=== PATIENT | female | born 1985 | race Caucasian/White ===

== ENCOUNTER 2025-10-01 07:50 | Day surgery (SDC) | payer OTHER, SELFPAY ==
--- NOTE | 2025-09-25 13:39 | PM.GYNHP.1 ---
History of Present Illness History of Present Illness Narrative: Regi Brown is a 39 year old female Date of procedure:?? 10-01-25 Preoperative diagnosis:? JOSESITO Planned Procedure:?? mid urethral sling, cystoscopy Postop Meds (to be ordered Tylenol 1000 mg, ?3 times a day? Motrin 600 mg (under age 65 yr) ,? 3 times a day Oycodone 5 mg,? take 1 pill every 4-6 hr as needed, # 5? Colace,? 1 pill BID, for constipation CC: Stress incontinence HPI: 39-year-old female who presents for evaluation of above complaint.?? She reports onset of symptoms 4-5 years ago.?? She considers this a? Moderate? problem. She notes stress incontinence that started with the of her 1st child back in 2019. She has had a 2nd delivery in January of this past year in the problem has worsened. She is very physically active and runs frequently and also works as a high school social studies teacher. So she generates a lot of triggers for stress incontinence creating the bothersome leakage. She reports that she will also sometimes leak with sneezing coughing and walking, but we will be having significant leakage with exercising. She leaks at least once or twice a day. Does not use pads presently. He is interested in surgery to treat her problem. She has done [facility], physical therapy, she has used a ring pessary with a knob, and she is presently inserting a tampon when she goes running to try to minimize the leakage by giving her urethral support from the tampon. She has completed childbearing in her spouse has a vasectomy. She desires surgery and is interested in having a sling. She does not have urge incontinence, no overactive bladder, empties her bladder well, no bladder infections, no hematuria. Very healthy young female prior hyst -0 -x2 c-sec -0 Pelvic Floor Review of Systems: (HPI) Stress Urinary Incontinence symptoms (JOSESITO): At least 1 or 2 per day, much worse with exercise and Triggers include: Sneeze, cough, walk, exercise ? Urge Incontinence symptoms (Urge UI): 0 Triggers include: 0 ? Pads: She wears 0, just changes clothes as needed Overactive Bladder symptoms (OAB):? ? Frequency:?? Every 3 hours Nocturia:?? X1 Urgency:?? 0 Prior incontinence treatment includes:? Medical:? No Surgical:? No? Josegels:?? Yes Physical therapy:?Yes Pessary:?Yes Diet / Fluids: Fluid restriction:? No Excessive fluids:?No Pain symptoms:? Painful bladder:???No Dysuria:??? No Dyspareunia:? Yes, she rates that she has had dyspareunia for several years., positional, deep inside. Prior pelvic exam demonstrated uterus was tipped and this might be the trigger for it Dysmenorrhea:? No Urinary Risk Factors UTI?s, recurrent:? No Hematuria:? No Kidney Stones:?No? Tobacco use:? No Pelvic Organ Prolapse (POP) symptoms:?? Bulge:?No Pressure and /or? Heaviness:?No Splint for defecation or voiding:???No Voiding dysfunction: Abnormal stream:? No Strain to void:? No Incomplete emptying:?No Voiding difficulty:? No Retention:??? No Bowel Function: Constipation:?0? Strain to defecate:?0 Fiber:?0 Laxatives:?0 Fecal Incontinence:? Liquid stool:? No Solid stool:?No?? Sexual function Sexually active: Yes Incontinence with sex:? No ? General Review of Systems: Constitutional, CV, Endo, Musc-skel, Eyes, Cancer, Skin, Breast, GI, Heme/Lymph, Psych, Urinary, Neuro, Layout Operator, Resp, Sexual:??? Pertinent positives listed above in HPI All others reviewed and negative. . . PFSH Allergies No Known Drug Allergies Allergy (Verified 08/14/25 08:50) Medications No Known Home Medications 08/14/25 [History Confirmed 08/14/25] Medical History (Updated 08/14/25 @ 09:37 by Papo Byrd MD) Stress incontinence, female Exam Vitals 08/14/2508:52 Height 5 ft 7 in Weight 155 lb BMI 24.3 BP 108/68 Blood Pressure Location Rt radial Position Sitting Pulse 62 Pulse Source Monitor Pulse Oximetry (%) 99 Oxygen Delivery Method room air Narrative: General: healthy, alert, coherent, no acute distress, cooperative, nontoxic Pulmonary: normal breathing, no distress Abdomen: soft, no mass, non-distended, no hernia, non-tender Skin: Scars on Abd: 0 Vulva: Normal labia majora, labia minora, introitus, and clitoris, non-tender Urethra meatus: normal, no discharge Perineum: Normal, non-tender Urethra: No mass, non-tender Bladder: no mass, non-tender Vagina: No lesions, no discharge, 0 atrophy, non-tender Prolapse 0, there is laxity of the anterior and posterior vaginal lyman, mild, no prolapse Levators: Non-tender, 4 / 5 kegel squeeze Cervix: Normal, current with Pap smears, normal, No lesions, no discharge, non-tender Uterus: Retroflexed, tipped posteriorly, and the fundus is palpable vaginally and this is the source of her pain with sex normal size, non-tender Bimanual: no mass, no adnexal mass, non-tender Anus: No lesion, non-tender, no hemorrhoid Empty Cough Stress test: Positive, confirming diagnosis of stress incontinence PVR: Not done today, was normal at prior visit with Dr. Lynn Urethral angle hypermobile: Yes, with significant rotational descent Assessment & Plan (1) Stress incontinence, female: Assessment and Plan ? Patient counseled regarding above conditions.? Educational materials given to patient. 1. Stress Urinary Incontinence with urethral hypermobility:? Diagnosis confirmed today with positive cough stress test This diagnosis was discussed with the patient. The etiology was explained. Treatment options were discussed including expectant management, pelvic floor exercises, pessary trial, and surgical intervention (mid-urethral sling, Borja urethropexy, P-V sling, Ira urethral plication, urethral bulking injection).? Risks and benefits of surgery were briefly outlined. We discussed that she is a candidate for a Midurethral Sling as treatment of her stress incontinence. Success rate of being dry from stress incontinence is about 80-85%; another 10-15% of patients are markedly improved but not cured;? 1-2% will fail, and 1-2% will need the sling cut because it is too tight.? The risk of temporary urinary retention requeiring temporary catheterization is about 15-20%; risk of urinary retention requiring sling release procedure is about 1-2%, as noted above.? We discussed the small 1-3% of mesh erosion as well as the small risk of de omayra urgency.? This procedure is not designed to treat Urge Incontinence symptoms; however, 30-50% of patients with overactive bladder/ urgency urinary incontinence will have improvement in these symptoms, in 30% these symptoms will stay the same, and in 20-30% these symptoms will worsen. She would like to proceed with surgery with a mid urethral sling. We will schedule for her see below for counseling CC = here for preop Surgical Counselling Note Patient seen for surgical counselling.? She desires surgical repair. Please see? H & P for exam and discussion. Date of procedure:?? 10-01-25 Preoperative diagnosis:? JOSESITO Planned Procedure:?? mid urethral sling, cystoscopy Postop Meds Tylenol 1000 mg, ?3 times a day? Motrin 600 mg (under age 65 yr) ,? 3 times a day Oycodone 5 mg,? take 1 pill every 4-6 hr as needed, # 15? Colace,? 1 pill BID, for constipation Patient counseled extensively about the Risks, Benefits, and Alternatives to surgery.? She was offered the opportunity to ask any questions, and all questions were answered. ? Surgical Risks include: Bleeding, Hemorrhage, Transfusion, Infection (especially wound or bladder), Injury to adjacent organs (especially bladder, ureter, bowel, blood vessels, nerves), Postop or Chronic Pain, need for Reoperation, and Life-threatening event (especially M.I., CVA, PE, DVT). Procedure Risks include: Failure to Cure condition, Recurrence of condition months or years later, Urinary incontinence, Voiding dysfunction or Urinary Retention with prolonged catheter use, Poor wound healing, Erosions of any mesh or graft used, Dyspareunia, Vaginal scarring or narrowing, Need for additional surgery (immediate or delayed).? The expected cure and improvement and failure rates were discussed. Patient counseled to avoid the following for 6 weeks after surgery: (1) Impact sports (like running or jumping), walking and stairs OK (2) Lifting over 20# (3) Sexual intercourse No limits after 6 weeks. ? Good exercise tolerance, > 4 Mets. Her current medications were reviewed, and instructions given over which to use and which to discontinue before surgery.? Post-operative care instructions reviewed.? We discussed post-operative pain: Pain should be in the mild-moderate range, but can be moderate-severe for the first few days.?? Prescriptions will typically be given for (1) acetaminophen (Tylenol) and (2) non-steroidal anti-inflammatory drug (NSAID, like Motrin or Naprosyn), use both together, around the clock. Prescription will also be given for a (3) narcotic pain medication. Use the narcotic as needed, as a booster to the Tylenol and NSAID. You might need 0-4 narcotic pills a day typically. The narcotic will only be needed for a few days.?? Gradually use less of the narcotic, but continue the Tylenol and NSAID.? After a few days, the narcotic should no longer be needed, and only the Tylenol and NSAID will be needed.? Warm packs or cold packs can also be used for pain.??Do not drive for as long as you are using the narcotic pain medication? - this should only be a few days.?? Constipation is associated with use of narcotic pain medications, and can be improved with use of a stool softener, or fiber, or a mild laxative.? If you are sent home from the hospital with a Ashley Catheter in place:? please call the office on the day after surgery We will usually remove the catheter 2-4 days after surgery: a. You will perform an at home Ashley catheter removal -or- b. You will come in to the office for a voiding trial, (For some unusual surgeries, we might leave the catheter in for up to 2 weeks, and then remove it.) Instructions for at home Ashley catheter removal..... For at-home Ashley catheter removal, this can be done on postop day 2 or 3 or 4, depending on various factors. 1. At 6 or 7 a.m., have the patient cut the Ashley catheter with scissors, while standing in a shower or bath tub. a. Cut the catheter right in the middle of the tubing, about 6 inches from the body. b. The sterile water that is inside the Ashley balloon will leak all over the floor of the shower or bath tub. This is expected. c. The catheter will either fall out of the urethra, or just gently pull on it and it will come out. 2. Now, the bladder will gradually fill up over the next few hours. 3. Go ahead and empty the bladder when you feel an urge to void. Please note how strong the urine stream is. a. If the urine stream is normal or close to normal, then everything is good to go. b. If the urine stream is slow or you can not void, then return to the clinic in the afternoon. We will place another Ashley catheter. We will repeat the voiding trial in 3-4 days. All of her questions were answered Papo Byrd MD UroGynecology & Pelvic Reconstructive Surgery [facility] Medical History (Updated 09/13/25 @ 12:23 by Petrona Arias RN) Mixed anxiety depressive disorder Thickened atrial septum Stress incontinence, female Social History Smoking Status: Never smoker Meds Home Medications and Allergies Home Medications ?Medication ?Instructions ?Recorded ?Confirmed ?Type oxycodone 5 mg tablet 5 mg PO Q4H PRN pain #5 tabs 09/25/25 Rx Allergies Allergy/AdvReac Type Severity Reaction Status Date / Time No Known Drug Allergies Allergy Verified 08/14/25 08:50 Assessment & Plan Time-Based Coding :: [TOTAL MINUTES] spent with patient and on the chart (including review of chart, obtaining history, exam, reviewing outside data, placing orders, documenting exam and treatment plan, and counseling patient) on [DATE].
[2025-10-01] VITALS (10 sets, daily range): BP systolic 77–108; BP diastolic 45–78; PULSE 46–68; RESP 14–16; TEMP 36.1–36.7; O2SAT 96–100
[2025-10-01] MEDS: LACTATED RINGERS 1,000 ML 42 ML IV (08:30)
[2025-10-01] MEDS: GABAPENTIN 300 MG CAPSULE PO (08:35)
[2025-10-01] MEDS: ACETAMINOPHEN 325 MG TABLET 975 MG PO (08:35)
--- NOTE | 2025-10-01 09:18 | PM.PREOP ---
Pre-operative Note Interval Note History & Physical reviewed/Exam performed by Physician: Yes Changes to H&P: No
[2025-10-01] MEDS: LIDOCAINE 1% W/EPI 10ML 20 ML INJ (10:06)
--- NOTE | 2025-10-01 10:09 | SUR.OPER ---
Lithotomy on padded OR bed, head on pillow, arms secured on padded arm boards at <90 degrees abduction, safety stray at waist. Legs secured in padded yellow fins stirrups.Final position approved by surgeon prior to start of procedure.
--- NOTE | 2025-10-01 11:00 | PM.GYNOP.1 ---
Operative Date/Time/Diagnoses Date of procedure: 10/01/25 Time of procedure: 10:00 Pre-op diagnosis: stress incontinence Post-op diagnosis: same Procedure & Clinicians Procedure: Procedures Operation Date: 10/01/25 09:15 Actual Procedure Side Surgeon p Mid Urethral Sling, Cystoscopy Papo Byrd MD Operative Notes Findings: Operative Note Surgeon:? Papo Byrd MD Extension Forester:?? Reshma Wayne MD Pre-Op Diagnosis:?? Stress incontinence Post-Op Diagnosis:?? Same? Procedure:?? Desara TVT mid-urethral sling, cystoscopy Findings (brief): ? 1.? Desara TVT sling placed at mid-urethra, tension-free ? 2.? Cystoscopy with normal bladder, ureters, urethra, no trocar injury 3. there was evidence of prior right sided distal periurethal laceration. so after the sling dissection but prior to the sling placement, 2 interrupted sutures of 2-0 vicrl were placed to reapproximate the distal periurethral fascia / muscle. 4. mild bleeding from each sling tunnel, so gelfoam placed for hemostasis Date of Surgery:? 10-01-2025 Complications:? none Specimens:? none Anesthesia Technique:?? General endotracheal Estimated Blood Loss (mls):? 100 Blood Replacement (mls):? none Drains:? Ashley Condition:? Stable Procedure in detail: After consent was confirmed, the patient was taken to the operating room and placed under general anesthesia without incident.? Sequential compression devices were in place and active.? She received perioperative antibiotics.? She was then prepped and draped in the usual sterile fashion after placement in the dorsal lithotomy position using the Russ stirrups.? A Ashley catheter was placed.? With the Ashley catheter in place, the anterior vaginal mucosa beneath and lateral to the urethra was injected with 10-20 cc of? 0.5% lidocaine / epinephrine 1:200,000.? A 2-3 cm midline incision was made at the level of the midurethra with a scapel. Metzenbaum scissors were used to dissect the vagina from the urethra and then create tunnels beneath the vaginal mucosa up toward the pubic bone on each side.? There was evidence of prior right sided distal periurethal laceration. so after the sling dissection but prior to the sling placement, 2 interrupted sutures of 2-0 vicrl were placed to reapproximate the distal periurethral fascia / muscle. A marking pen was used to romario the skin just above the pubic bone and 2 cm from the midline bilaterally, and two small 8-10 mm incisions were made on the suprapubic skin.? The trocar was passed from the right vaginal tunnel, behind the pubic bone, to the right suprapubic incision, and this was repeated on the left side.? The Ashley catheter was removed, and cystoscopy was performed with a 70 degree lens. There was no trocar injury, and the bladder, ureters, and urethra were normal.? The Ashley catheter was reinserted.? The sling was pulled into position in a tension-free manner, and a Ira clamp was easily passed between the sling and the urethra.? The plastic sheaths were removed to anchor the sling, and tension was checked again. The ends of the sling were trimmed just below the skin, and the skin incisions were cleaned and closed with dermabond. Gelfoam placed as above. The vaginal incision was closed with 2-0 vicryl in a running fashion. Sponge, needle and instrument count was correct.? The patient tolerated the procedure well and was taken to the recovery room in stable condition. Papo Byrd MD UroGynecology & Pelvic Reconstructive Surgery [place], [place] Applied: implant(s) (Desara TVT type sling )
[2025-10-01] MEDS: IBUPROFEN 400 MG TABLET PO (11:38)
[2025-10-01] MEDS: LACTATED RINGERS 1,000 ML 999 ML IV (13:00)
--- NOTE | 2025-10-01 13:14 | SUR.PHASEII ---
1219, patient walked to bathroom and back, no issues. She went from bed to wheel chair after her IV was removed for D/C and had a syncopal episode. Patient lost consciousness, her head went forward and she was unresponsive for 30 seconds, RN raised patients head to open her airway and after she was awake again with a 2 person assist patient was brought back to stretcher to lay down and rest. Pulse ox placed and BP checked. She was hypotensive. New IV placed and IV fluids re started. Will continue to monitor.
--- NOTE | 2025-10-01 13:21 | SUR.PHASEII ---
1200- 300lm Sterile water instilled into bladder, Patient toleratred well. Ashley catheter was removed. Patient ambulated to the bathroom, voided 500ml pink clear urine with a small clot.
== END 2025-10-01 14:08 | disposition home or self-care (01) ==
PROVIDERS: PCP Family Medicine; Referring Provider Obstetrics & Gynecology Gynecology; Visit Provider Obstetrics & Gynecology Gynecology
PROC: 0TSD0ZZ Reposition Urethra, Open Approach (ICD-10-PCS; CPT 57288; principal; 2025-10-01 09:15)
DX: N39.3 Stress incontinence (female) (male) (principal)
CPT/HCPCS: 57288; 81025; C1713; J0689; J1100; J2405; J2704; J3010; J7120